=== PATIENT | female | born 1985 ===

== ENCOUNTER 2016-06-09 18:39 | Inpatient (IN) | payer OTHER ==
[2016-06-09 19:34] VITALS: BMI 47.8
[2016-06-09 20:50] VITALS: RESP 18; O2SAT 98
[2016-06-09 20:53] LABS: BASO # 0.1 K/uL (0.0-0.2); BASO % 0.6 % (0.0-2.0); EOS # 0.1 K/uL (0.0-0.7); EOS % 0.5 % (0.0-4.0); HEMATOCRIT 36.1 % (34.0-47.0); LYMPH # 2.7 K/uL (1.0-4.3); LYMPH % 21.3 % (20.0-40.0); MEAN CELL VOLUME 89.9 fl (81.0-99.0); MEAN CORPUSCULAR HEMOGLOBIN 29.8 pg (27.0-31.0); MEAN CORPUSCULAR HGB CONC 33.2 g/dL (33.0-37.0); MEAN PLATELET VOLUME 10.7 fl (7.2-11.7); MONO # 0.7 K/uL (0.0-0.8); MONO % 5.4 % (0.0-10.0); NEUT # 9.1 K/uL (1.8-7.0); NEUT % 72.2 % (50.0-75.0); RED CELL DISTRIBUTION WIDTH 14.2 % (11.5-14.5); WHITE BLOOD COUNT 12.6 K/uL (4.8-10.8)
--- NOTE | 2016-06-09 21:15 | OBHP ---
Datetime: 06/09/2016 20:30 IP Adm Impression: Term, intrauterine ; No Active Labor IP Chief Complaint Other: sent for early labor/low fluid IP Admit Plan: Admit to unit; Initiate labor protocol; Initiate labor augmentation protocol Admit Comment, IP Provider: IUP at 37w in early labor; sent from office 3-4cm dilated and lo w fluid MARICRUZ 4.9cm. She feel occ CTX; no VB; no SROM; +FM care: CP 5MV Dr Junie jimenez chart rev'd PMH: obese POBGYN: NSVDx1; HPV+; Spont Ab x1 PSH: denies Allergies: PCN/Ooxifloxacin A: IUP at 37w Oligo latent phase of labor: PLAN: Discussion about early labor, Oligo, medications incl Pitocin, pain management, labor, delivery an d care. Check labs; enema; Pitocin augmentation Pelvic Type - PN: Adequate Extremities - PN: Normal Abdomen - PN: Normal Back - PN: Normal Lungs - PN: Normal Heart - PN: Normal Thyroid - PN: Normal Neurologic - PN: Normal HEENT - PN: Normal General - PN: Normal Presentation-Admit: Vertex FHR - Baseline A Provider: 140 Membranes, Provider: Intact Comments, ACOG Physical Exam: ROS: Gneral: no weakness; no fatigue HEENT No DE JESUS; no visual dist CV: no CP no palpitatoins Resp: no SOB; no cough GI: no N/V/D : no F/U/D MS: no joint pain Pool Provider: Negative IP Hx Assessment: The History has been Reviewed and is Current EGA AdmitDate IP: 39.2 IP Chief Complaint: Other NICHD Variability Prov Fetus A: Moderate 6-25bpm NICHD Accel Fetus A IP Provider: 15X15 FHR Category Provider Fetus A: Category I NICHD Decel Fetus A IP Provider: None Dilatation, Provider: 3 Effacement, Provider: 50 Station, Provider: -2 Genitourinary Exam: Normal
[2016-06-09] MEDS ORDERED: Oxytocin 30 units/LR 500ML 500 ML IV ONE ×2 (21:52→23:00)
--- NOTE | 2016-06-09 22:02 | OBADHP ---
Datetime: 06/09/2016 20:30 IP Chief Complaint Other: sent for early labor/low fluid Admit Comment, IP Provider: IUP at 37w in early labor; sent from office 3-4cm dilated and lo w fluid MARICRUZ 4.9cm. She feel occ CTX; no VB; no SROM; +FM care: CP 5MV Dr Junie jimenez chart rev'd PMH: obese POBGYN: NSVDx1; HPV+; Spont Ab x1 PSH: denies Allergies: PCN/Ooxifloxacin A: IUP at 37w Oligo latent phase of labor: PLAN: Discussion about early labor, Oligo, medications incl Pitocin, pain management, labor, delivery an d care. Check labs; enema; Pitocin augmentation Pelvic Type - PN: Adequate Extremities - PN: Normal Abdomen - PN: Normal Back - PN: Normal Lungs - PN: Normal Heart - PN: Normal Thyroid - PN: Normal Neurologic - PN: Normal HEENT - PN: Normal General - PN: Normal Presentation-Admit: Vertex FHR - Baseline A Provider: 140 Membranes, Provider: Intact Comments, ACOG Physical Exam: ROS: Gneral: no weakness; no fatigue HEENT No DE JESUS; no visual dist CV: no CP no palpitatoins Resp: no SOB; no cough GI: no N/V/D : no F/U/D MS: no joint pain Pool Provider: Negative IP Hx Assessment: The History has been Reviewed and is Current IP Chief Complaint: Other NICHD Variability Prov Fetus A: Moderate 6-25bpm NICHD Accel Fetus A IP Provider: 15X15 FHR Category Provider Fetus A: Category I NICHD Decel Fetus A IP Provider: None Dilatation, Provider: 3 Effacement, Provider: 50 Station, Provider: -2 Genitourinary Exam: Normal EGA AdmitDate IP: 39.2 IP Adm Impression: Term, intrauterine ; No Active Labor IP Admit Plan: Admit to unit; Initiate labor protocol; Initiate labor augmentation protocol Datetime: 04/15/2016 16:48 Breast - PN: Normal Contraction Comments Provider: none Vital Signs Provider: Reviewed; Within Normal Limits DTRs - PN: Normal
[2016-06-09] MEDS: Lactated Ringer's 1,000 ML IV SCH (22:30)
[2016-06-10] MEDS: Lactated Ringer's 1,000 ML IV SCH ×3 (00:15→06:00)
[2016-06-10] MEDS ORDERED: Fentanyl/Bupivacaine HCl 250 ML EPI ONE (00:25)
[2016-06-10] MEDS ORDERED: Oxytocin 30 units/LR 500ML 500 ML IV ONE (10:00)
--- NOTE | 2016-06-10 10:01 | OBDS ---
DELIVERY PERSONNEL Delivery Doctor: Jh Fernandez MD Supervisor Plasma: Ed Pennyen RN MATERNAL INFORMATION Delivery Anesthesia: Epidural Maternal Complications: None Provider Comments: Delivered a live baby boy at 9:50 AM the baby was bulb suctioned on the perineum and transferred to maternal chest. The cord was clamped and cut and 3 vessels noted blood was obtaine d and sent to the lab. Placenta was delivered at 9:53 AM intact estimated blood loss 250 mL there wer e no vaginal lacerations. The mother tolerated procedure well. He was well baby nursery with Apgars o f 9 and 9 weighing 7 pounds flat 3175 g LABOR SUMMARY EDC: 06/14/2016 00:00 No. Babies in Womb: 1 Attempted: No Labor Anesthesia: Epidural LABOR INFORMATION Onset of Labor: 06/10/2016 07:30 Complete Dilatation: 06/10/2016 08:29 Oxytocin: Augmentation Group B Beta Strep: Negative Steroids Given: None (Annotations: Data stored by [facility] on behalf of user) Reason Steroids Not Administered: Not Applicable MEMBRANES Membranes Rupture Method: Artificial Amniotic Fluid Amount: None Amniotic Fluid Odor: None STAGES OF LABOR Stage 1 hrs: 0 Stage 1 min: 59 Total Time in Labor hrs: 2 Total Time in Labor min: 23 VAGINAL DELIVERY Sponge Count Correct: Yes Sharps Count Correct: N/A BABY A INFORMATION Born in Route : No : N/A Forceps: N/A PRESENTATION/POSITION BABY A Presentation: Cephalic Cephalic Presentation: Vertex Breech Presentation: N/A PLACENTA INFORMATION BABY A Placenta Delivery Time : 06/10/2016 09:53 INFANT INFORMATION BABY A Gestational Age at Delivery: 41.0
[2016-06-10] MEDS ORDERED: Oxycodone/Acetaminophen 5/325 mg Tab PO PRN ×4 (10:08→17:36)
[2016-06-11 07:56] LABS: HEMATOCRIT 34.9 % (34.0-47.0); MEAN CELL VOLUME 91.3 fl (81.0-99.0); MEAN CORPUSCULAR HEMOGLOBIN 29.6 pg (27.0-31.0); MEAN CORPUSCULAR HGB CONC 32.5 g/dL (33.0-37.0); WHITE BLOOD COUNT 12.6 K/uL (4.8-10.8)
--- NOTE | 2016-06-11 12:59 | OBPPN ---
Datetime: 06/11/2016 12:55 PP Abdomen/Uterus Prov: Normal PP Lochia Prov: Normal PP Progress Prov: Normal PP Impression Prov: Normal progression PP Plan Prov: Continue present management PP Progress Note Prov: PPD 1 s/p , doing well, breast and bottle feeding Comtinue current management Vital Signs Provider PP: Reviewed; Within Normal Limits
[2016-06-11] MEDS: Hydrocortisone-Pramoxine 1%-1% Foam(10 gm) TOP SCH (16:37)
[2016-06-12 09:48] VITALS: BP 128/76; PULSE 63; TEMP 98.3
[2016-06-12] MEDS: Hydrocortisone-Pramoxine 1%-1% Foam(10 gm) TOP SCH (09:48)
== END 2016-06-12 14:23 | disposition home or self-care (01) | DRG 775 ==
LOC: H.EROB2 18:39 → H.L&D 20:29 → H.OB/GYN 06-10 14:00
PROVIDERS: ADMIT Obstetrics & Gynecology; ATTEND Obstetrics & Gynecology
PROC: 10E0XZZ Delivery of Products of Conception, External Approach (ICD-10-PCS; principal; 2016-06-09)
PROC: 4A1HXCZ Monitoring of Products of Conception, Cardiac Rate, External Approach (ICD-10-PCS; 2016-06-09)
DX: O41.03X0 Oligohydramnios, third trimester, not applicable or unspecified (principal); O99.214 Obesity complicating childbirth; Z37.0 Single live birth; Z3A.37 37 weeks gestation of pregnancy

== ENCOUNTER 2016-08-24 10:34 | Day surgery (SDC) | payer OTHER ==
[2016-08-24 11:16] VITALS: BMI 42.5
[2016-08-24] MEDS ORDERED: Succinylcholine 200 mg/10 ml Inj IV ONE (11:20)
[2016-08-24] MEDS ORDERED: Propofol 10 mg/ml Inj (20 ML) ONE ×2 (11:20→11:22)
[2016-08-24] MEDS ORDERED: Rocuronium 10 mg/ml (5 ml) ONE (11:20)
[2016-08-24] MEDS ORDERED: Midazolam 2 MG/2 ML VIAL ONE (11:22)
[2016-08-24] MEDS ORDERED: Lidocaine 1% Inj (20ml) ONE (11:27)
[2016-08-24] MEDS ORDERED: Bupivacaine 0.5% Inj(30mL) ONE (11:27)
--- NOTE | 2016-08-24 13:20 | CP.SDSHP ---
Same Day Surgery H & P - History Proposed Procedure: Bilateral Tubal Ligation Pre-Op Diagnosis: tubal sterilization - Allergies Allergies: Allergies moxifloxacin HCl [From Avelox] Allergy (Verified 06/09/16 19:35) RASH Penicillins Allergy (Verified 06/09/16 19:35) RASH - Physical Exam Vital Signs: Vital Signs 08/24/16 08/24/16 11:03 11:10 Temperature 97.9 F Pulse Rate 61 61 Respiratory 18 Rate Blood Pressure 96/59 L O2 Sat by Pulse 96 Oximetry Neuro: WNL Heart: WNL Lungs: WNL GI: WNL - {Optional Preform as Required} Breast: WNL Abdomen: WNL FUR CUTTER: WNL : WNL Ortho: WNL ENT: WNL - Impression Pt. Evaluated Today:Candidate for Anesthesia & Procedure: Yes - Date & Time Date: 08/24/16 Time: 13:19 Short Stay Discharge - Short Stay Discharge Admitting Diagnosis/Reason for Visit: Z30.09 Referrals: Fifi Mcdaniels MD [Primary Care Provider] - Follow-up: return to office in 1-2 weeks Progress Note/Discharge Note with Instructions: discharge when meets floor criteria
[2016-08-24] MEDS ORDERED: Lactated Ringer's 1,000 ML IV ONE (13:51)
[2016-08-24] MEDS ORDERED: Chlorhexidine Gluconate 2OZ GEL TP ONE (14:08)
[2016-08-24] MEDS ORDERED: Neostigmine Methylsulfate 3mg/3ml Syringe IV ONE (14:36)
[2016-08-24] MEDS ORDERED: Neostigmine Methylsulfate 2 MG/2 ML ML IV ONE (14:36)
[2016-08-24] MEDS ORDERED: Lactated Ringer's 1,000 ML IV SCH (15:32)
[2016-08-24] MEDS ORDERED: Oxycodone/Acetaminophen 5/325 mg Tab PO PRN (15:32)
[2016-08-24 16:15] VITALS: RESP 18
[2016-08-24 16:16] VITALS: O2SAT 98
[2016-08-24 17:05] VITALS: BP 112/67; PULSE 68; TEMP 97.2
--- NOTE | 2016-08-26 10:15 | OP ---
PROCEDURE DATE: 08/24/2016 SURGEON: Dr. Elle Hall. TALENT ENGINEER: Dr. Schmitt. PREOPERATIVE DIAGNOSIS: Elective bilateral tubal ligation. PROCEDURE: Attempted laparoscopic bilateral tubal ligation. POSTOPERATIVE DIAGNOSIS: Procedure terminated. ESTIMATED BLOOD LOSS: None. ANESTHESIA: General by Dr. Echols. URINE OUTPUT: 200 mL. COMPLICATIONS: Obesity, obese pannus. PATHOLOGY: None. CONDITION: Stable. INDICATIONS: This is a 31-year-old with 2 previous vaginal deliveries with morbid obesity who elected to proceed with elective bilateral tubal ligation. The patient was counseled extensively of possible options, including possible long-term control options or permanent sterilization. The patient was counseled that this was an irreversible procedure if performed and the patient would not be able to conceive after procedure was done. The patient elected to proceed with procedure, was ad vised of risks and benefits of procedure, including risks of bleeding, infection, damage to surroundi ng organs. The patient verbalized understanding and signed informed consent and the patient was sche duled. DESCRIPTION OF PROCEDURE: The patient was taken to OR. IV fluids were running. She was placed unde r general anesthesia without difficulty. SCDs were placed bilaterally. The patient was placed in do rsal lithotomy position with Ray-type stirrups with knees bent at a 30 degree angle. The patient w as prepped and draped in a normal sterile fashion. Perkins catheter was inserted and the bladder was e mptied. A speculum was placed in the posterior fornix of the vagina. The anterior lip of the cervix was grasped with a single-tooth tenaculum and a uterine manipulator was introduced. Two Allis clamp s were used to elevate the base of the umbilicus. A vertical skin incision was made vertically throu gh the umbilical fold. The Veress needle was placed and the water test showed looked to be placed co rrectly. The pneumoperitoneum was established with CO2 gas with a pressure of 15 ____. When attempt was made to introduce the camera, we were unable to enter the peritoneal cavity. We attempted again with a bariatric Veress needle as well as bariatric cannulas and were unable to enter the peritoneal cavity. At this point, after multiple attempts, it was decided at this point that because this was an elective procedure to terminate the procedure so as not to put the patient more at risk. The case was terminated. All instruments removed from the abdomen and the vagina. The umbilicus incision wa s closed with Dermabond. The Perkins catheter was noted to drain 200 mL of clear urine. The uterine m anipulator was removed. The patient was awoken from anesthesia in stable condition. The patient was told in recovery that the procedure had to be terminated and would be counseled in the office of wha t other options were available. There were no other complications. Elle Hall MD cc: [id number] TT: 08/26/2016 10:14:18 tn
== END 2016-08-24 17:15 | disposition home or self-care (01) ==
LOC: H.OPSURG 10:34
PROVIDERS: ATTEND Obstetrics & Gynecology
DX: Z30.2 Encounter for sterilization (principal); K21.9 Gastro-esophageal reflux disease without esophagitis; G43.909 Migraine, unspecified, not intractable, without status migrainosus; Z53.9 Procedure and treatment not carried out, unspecified reason